=== PATIENT | male | born 1990 | race Caucasian/White ===

== ENCOUNTER 2018-03-19 10:54 | Emergency (ER) | payer MEDICAID, OTHER ==
[2018-03-19 11:06] VITALS: BP 136/85; PULSE 82; RESP 18; TEMP 98.2; O2SAT 98
[2018-03-19 11:12] VITALS: BMI 30.4
--- NOTE | 2018-03-19 11:23 | C.PDOC ---
History Of Present Illness 27 y/o male c/o cough. myalgias, sore throat, subjective fever since Monday. child in home with cold symptoms. no cp or sob. Time Seen by Provider: 03/19/18 11:09 Chief Complaint (Nursing): Cough, Cold, Congestion History Per: Patient History/Exam Limitations: no limitations Onset/Duration Of Symptoms: Days (4) Current Symptoms Are (Timing): Still Present Location Of Pain: Throat, Diffuse Myalgias Sick Contacts (Context): Family Member(s) Associated Symptoms: Fever (subjecitve), Sore Throat, Cough, Myalgias, Nasal Congestion Ear Symptoms: Bilateral: None Past Medical History Reviewed: Historical Data, Nursing Documentation, Vital Signs Vital Signs: Last Vital Signs Temp 98.2 F 03/19/18 11:05 Pulse 82 03/19/18 11:05 Resp 18 03/19/18 11:05 BP 136/85 03/19/18 11:05 Pulse Ox 98 03/19/18 11:05 - Medical History PMH: No Chronic Diseases Denies: Chronic Kidney Disease - [facility] VACCINATION NEC (11/07/13) Family History: States: Unknown Family Hx - Social History Hx Tobacco Use: Yes Hx Alcohol Use: No Hx Substance Use: No - Immunization History Hx Tetanus Toxoid Vaccination: No Hx Influenza Vaccination: No Hx Pneumococcal Vaccination: No Review Of Systems Constitutional: Positive for: Fever ENT: Positive for: Nose Discharge, Nose Congestion, Throat Pain. Negative for: Ear Pain, Throat Swelling Cardiovascular: Negative for: Chest Pain Respiratory: Positive for: Cough. Negative for: Shortness of Breath Gastrointestinal: Negative for: Vomiting, Abdominal Pain Musculoskeletal: Negative for: Back Pain Skin: Negative for: Rash Neurological: Negative for: Weakness, Numbness Physical Exam - Physical Exam Appears: Non-toxic, No Acute Distress Skin: Warm, Dry Head: Atraumatic, Normacephalic Eye(s): bilateral: Normal Inspection Ear(s): Bilateral: Normal Nose: No Discharge Oral Mucosa: Moist Tongue: Normal Appearing Lips: Normal Appearing Throat: No Erythema, No Exudate Neck: Supple Lymphatic: No Adenopathy Chest: Symmetrical, No Deformity, No Tenderness Cardiovascular: Rhythm Regular, No Murmur Respiratory: No Decreased Breath Sounds, No Rales, No Rhonchi, No Wheezing ED Course And Treatment O2 Sat by Pulse Oximetry: 98 Medical Decision Making Medical Decision Makin27 y/o male with flu like symptms x 4 days. afebrile in ed, looks well, tx for uri/viral illness Disposition Counseled Patient/Family Regarding: Diagnosis, Need For Followup, Smoking Cessation - Disposition Referrals: [facility] [Outside] Disposition: HOME/ ROUTINE Disposition Time: 11:25 Condition: GOOD Additional Instructions: Take Tylenol or Ibuprofen for pain or fever. Gargle with warm salty water several times a day. Drink increased fluids. Follow up in medical clinic. Instructions: Upper Respiratory Infection (ED) Forms: [facility] ([place]i), General Discharge Instructions - Clinical Impression Clinical Impression: Influenza-like illness
== END 2018-03-19 11:34 | disposition home or self-care (01) ==
LOC: C.ER 10:54
DX: J11.1 Influenza due to unidentified influenza virus with other respiratory manifestations (principal)